=== PATIENT | female | born 1985 | race Caucasian/White ===

== ENCOUNTER 2020-02-09 22:09 | Emergency (ER) | payer MEDICAID ==
[~2020-02-09] VITALS: Ht 172.7 cm; Wt 58.1 kg
[~2020-02-09 22:09] MED LIST: CEPH-37 PO; CYCL5TAB PO; DIAZ2TAB PO; FURO40TA4 PO; LOPE1TAB9 PO; MORP30TA PO; PERCOT PO; PROM25TA5 PO; ZOLP10TA6 PO; [UNRECOGNIZED DRUG - CODE] PO
[2020-02-10] MEDS ORDERED: IBUPROFEN 600 MG TAB PO ONE
[2020-02-10 00:20] VITALS: BP 128/67
[2020-02-10] MEDS ORDERED: KETOROLAC TROMETH 30 MG/ML 1ML VIAL IV ONE (00:30)
== END 2020-02-10 00:46 | disposition home or self-care (01) ==
LOC: EDBD 22:09 → ER 22:11
DX: M53.3 Sacrococcygeal disorders, not elsewhere classified (principal); F17.210 Nicotine dependence, cigarettes, uncomplicated; Z86.2 Personal history of diseases of the blood and blood-forming organs and certain disorders involving the immune mechanism; Z79.899 Other long term (current) drug therapy; Z91.013 Allergy to seafood; Z88.1 Allergy status to other antibiotic agents; Z88.0 Allergy status to penicillin; Z91.018 Allergy to other foods; W00.0XXA Fall on same level due to ice and snow, initial encounter; Y93.89 Activity, other specified; Y92.89 Other specified places as the place of occurrence of the external cause; Y99.8 Other external cause status
CPT/HCPCS: 72131; 72192; 96374; 99285; J1885

== ENCOUNTER 2020-02-16 14:45 | Emergency (ER) | payer MEDICAID ==
[~2020-02-16] VITALS: Ht 162.6 cm; Wt 61.2 kg
[~2020-02-16 14:45] MED LIST changes: +AMIT10TA7 PO; -[UNRECOGNIZED DRUG - CODE] PO
[2020-02-16 19:45] LABS: Urine Bacteria FEW /hpf (None Seen); Urine Blood Negative /uL (Negative); Urine Specific Gravity 1.025 (1.001-1.035); Urine WBC 51 /hpf (0 - 5)
[2020-02-16 19:49] LABS: Basophils # (auto) 0.2 10 ^3/uL (0-0.2); Eosinophils # (auto) 0.3 10 ^3/uL (0-0.8); Eosinophils % (auto) 2.4 % (0.0-7.0); Hematocrit 43.7 % (36.0-46.0); Hemoglobin 14.6 g/dL (12.2-16.2); Lymphocytes # (auto) 2.3 10 ^3/uL (0.4-5.4); Lymphocytes % (auto) 21.9 % (10.0-50.0); Mean Corpuscular Hemoglobin 31.2 pg (28.0-32.0); Mean Corpuscular Hgb Conc. 33.4 g/dL (32.0-36.0); Mean Corpuscular Volume 93.3 fL (80.0-100.0); Monocytes # (auto) 1.1 10 ^3/uL (0-1.3); Monocytes % (auto) 10.6 % (0.0-12.0); Neutrophils # (auto) 6.7 10 ^3/uL (1.6-8.6); Neutrophils % (auto) 63.1 % (37.0-80.0); Nucleated Red Blood Cells % 0.1 %; Red Blood Cells 4.68 10^6/uL (4.0-5.20); White Blood Cell 10.6 10^3/uL (4.4-10.8)
[2020-02-16 19:57] LABS: Albumin 3.9 g/dL (3.4-5.0); Calcium 8.9 mg/dL (8.5-10.1); Potassium 3.9 mmol/L (3.5-5.1)
[2020-02-16 20:00] LABS: BUN/Creatinine Ratio 21.1; Bilirubin, Total 0.3 mg/dL (0.2-1.0); Total Protein 7.7 g/dL (6.4-8.2)
[2020-02-16] MEDS ORDERED: MAGNESIUM CITRATE SOLUTION 300 ML BTL PO ONE (21:45)
[2020-02-16] MEDS ORDERED: methylPREDNISolone SOD SUCC 125 MG/2 ML VL IM ONE (21:45)
[2020-02-16] MEDS ORDERED: cefTRIAXone SOD 1,000 MG VL IM ONE (21:45)
[2020-02-16] MEDS ORDERED: DOCUSATE SOD 100 MG CAP PO ONE (21:45)
[2020-02-16] MEDS ORDERED: KETOROLAC TROMETH 60MG/2ML VIAL IM ONE (21:45)
[2020-02-16] MEDS ORDERED: SENNA 8.6 MG TAB PO ONE (21:45)
[2020-02-16] MEDS ORDERED: AZITHROMYCIN 250 MG TAB PO ONE (21:45)
[2020-02-16] MEDS ORDERED: LACTULOSE 20Gm/30ML SOLN PO ONE (21:45)
[2020-02-16 21:46] VITALS: BP 116/86
[2020-02-17] MEDS ORDERED: SIMETHICONE 80 MG CHEWABLE TABLET PO ONE (00:45)
[2020-02-17] MEDS ORDERED: MILK OF MAGNESIA 30ML SUSP PO ONE (00:45)
[2020-02-18 08:06] LABS: RPR Non Reactive (Non Reactive)
== END 2020-02-17 01:59 | disposition home or self-care (01) ==
LOC: ER 14:45
DX: N39.0 Urinary tract infection, site not specified (principal); K59.00 Constipation, unspecified; F17.210 Nicotine dependence, cigarettes, uncomplicated; Z79.899 Other long term (current) drug therapy; Z88.0 Allergy status to penicillin; Z88.1 Allergy status to other antibiotic agents; Z91.018 Allergy to other foods; Z20.2 Contact with and (suspected) exposure to infections with a predominantly sexual mode of transmission
CPT/HCPCS: 36415; 74176; 76830; 76856; 80053; 81001; 84702; 85025; 86592; 86695; 86696; 86703; 87070; 87491; 87591; 96372; 99285; J0696; J1885; J2930

== ENCOUNTER 2020-03-14 11:26 | Emergency (ER) | payer MEDICAID ==
[~2020-03-14] VITALS: Ht 162.6 cm; Wt 63.5 kg
[~2020-03-14 11:26] MED LIST changes: -AMIT10TA7 PO; +[UNRECOGNIZED DRUG - CODE] PO
[2020-03-14 11:36] VITALS: BP 111/64
[2020-03-14 15:21] LABS: Urine Bacteria FEW /hpf (None Seen); Urine Blood Negative /uL (Negative); Urine Specific Gravity 1.015 (1.001-1.035); Urine WBC 1 /hpf (0 - 5)
[2020-03-14 15:24] LABS: Basophils # (auto) 0 10 ^3/uL (0-0.2); Basophils % (auto) 0.5 % (0.0-2.0); Eosinophils # (auto) 0.4 10 ^3/uL (0-0.8); Eosinophils % (auto) 4.5 % (0.0-7.0); Hemoglobin 14.1 g/dL (12.2-16.2); Lymphocytes # (auto) 3.8 10 ^3/uL (0.4-5.4); Lymphocytes % (auto) 41.4 % (10.0-50.0); Mean Corpuscular Hemoglobin 31.9 pg (28.0-32.0); Mean Corpuscular Hgb Conc. 34.5 g/dL (32.0-36.0); Mean Corpuscular Volume 92.3 fL (80.0-100.0); Monocytes # (auto) 0.9 10 ^3/uL (0-1.3); Monocytes % (auto) 10.3 % (0.0-12.0); Neutrophils # (auto) 3.9 10 ^3/uL (1.6-8.6); Neutrophils % (auto) 43.3 % (37.0-80.0); Nucleated Red Blood Cells % 0.1 %; Platelet Count (auto) 306 10^3/uL (140-450); Red Blood Cells 4.44 10^6/uL (4.0-5.20); Red Cell Distribution Width 13.5 % (11.8-14.3); White Blood Cell 9.1 10^3/uL (4.4-10.8)
[2020-03-14 15:40] LABS: Albumin 3.5 g/dL (3.4-5.0); BUN/Creatinine Ratio 22.4; Calcium 8.6 mg/dL (8.5-10.1); Potassium 4.1 mmol/L (3.5-5.1)
[2020-03-14 15:43] LABS: Bilirubin, Total 0.3 mg/dL (0.2-1.0); Total Protein 6.8 g/dL (6.4-8.2)
== END 2020-03-14 17:03 | disposition home or self-care (01) ==
LOC: ER 11:26
DX: R10.84 Generalized abdominal pain (principal); F17.210 Nicotine dependence, cigarettes, uncomplicated; Z20.822 Contact with and (suspected) exposure to COVID-19; Z88.0 Allergy status to penicillin; Z91.013 Allergy to seafood; Z88.1 Allergy status to other antibiotic agents; Z91.018 Allergy to other foods
CPT/HCPCS: 36415; 74176; 80053; 81001; 85025; 87426

== ENCOUNTER 2020-06-08 21:20 | Emergency (ER) | payer MEDICAID ==
[~2020-06-08] VITALS: Ht 162.6 cm; Wt 68.0 kg
[~2020-06-08 21:20] MED LIST changes: +AMIT10TA7 PO; -[UNRECOGNIZED DRUG - CODE] PO
[2020-06-08 23:03] LABS: Basophils # (auto) 0 10 ^3/uL (0-0.2); Basophils % (auto) 0.4 % (0.0-2.0); Eosinophils # (auto) 0.2 10 ^3/uL (0-0.8); Eosinophils % (auto) 2.1 % (0.0-7.0); Hematocrit 43.3 % (36.0-46.0); Hemoglobin 14.5 g/dL (12.2-16.2); Lymphocytes # (auto) 3.4 10 ^3/uL (0.4-5.4); Lymphocytes % (auto) 36.3 % (10.0-50.0); Mean Corpuscular Hemoglobin 30.6 pg (28.0-32.0); Mean Corpuscular Hgb Conc. 33.4 g/dL (32.0-36.0); Mean Corpuscular Volume 91.8 fL (80.0-100.0); Monocytes # (auto) 0.8 10 ^3/uL (0-1.3); Neutrophils % (auto) 53.2 % (37.0-80.0); Platelet Count (auto) 303 10^3/uL (140-450); Red Blood Cells 4.72 10^6/uL (4.0-5.20); Red Cell Distribution Width 14.2 % (11.8-14.3); White Blood Cell 9.4 10^3/uL (4.4-10.8)
[2020-06-08 23:30] LABS: Albumin 3.7 g/dL (3.4-5.0); Calcium 8.5 mg/dL (8.5-10.1); Potassium 3.5 mmol/L (3.5-5.1)
[2020-06-08 23:32] LABS: BUN/Creatinine Ratio 19.7
[2020-06-08 23:35] LABS: Bilirubin, Total 0.4 mg/dL (0.2-1.0); Total Protein 7.2 g/dL (6.4-8.2)
[2020-06-09 00:15] LABS: Urine Bacteria FEW /hpf (None Seen); Urine Blood Negative /uL (Negative); Urine Mucus FEW (None Seen); Urine Specific Gravity 1.028 (1.001-1.035); Urine WBC 8 /hpf (0 - 5)
[2020-06-09] MEDS ORDERED: MORPHINE SULF INJ 2 MG/ML SYRINGE 1ML IV ONE (01:15)
[2020-06-09] MEDS ORDERED: cefTRIAXone 1GM/50ML D5W 50 ML IV ONE (01:15)
[2020-06-09] MEDS ORDERED: metroNIDAZOLE 500MG/100ML 100 ML IV ONE (01:15)
[2020-06-09] MEDS ORDERED: SODIUM CHLORIDE 0.9% 1,000 ML IV ONE (01:15)
[2020-06-09] MEDS ORDERED: ONDANSETRON HCL 4 MG/2 ML VIAL IV ONE (01:45)
[2020-06-09 02:16] LABS: Alcohol, Urine < 3.0 mg/dL (0-10); Amphetamine Screen, Urine NEGATIVE (NEGATIVE); Barbiturate Scree,Urine NEGATIVE (NEGATIVE); Benzodiazephine Screen, Urine POSITIVE (NEGATIVE); Cannabinoid Screen, Urine POSITIVE (NEGATIVE); Cocaine Screen, Urine NEGATIVE (NEGATIVE); Opiate Scree,Urine NEGATIVE (NEGATIVE); Phencyclidine Screen, Urine NEGATIVE (NEGATIVE)
[2020-06-09 06:53] VITALS: BP 97/46
== END 2020-06-09 06:57 | disposition home or self-care (01) ==
LOC: ER 21:23
DX: N39.0 Urinary tract infection, site not specified (principal); N89.8 Other specified noninflammatory disorders of vagina
CPT/HCPCS: 36415; 74176; 76830; 76856; 80053; 80307; 81001; 84702; 85025; 87070; 87491; 87591; 96365; 96368; 96375; 99285; J0696; J2270; J2405; J3490; J7030

== ENCOUNTER 2020-06-28 22:58 | Emergency (ER) | payer MEDICAID ==
[~2020-06-28] VITALS: Ht 162.6 cm; Wt 69.9 kg
[2020-06-28 23:48] LABS: Basophils # (auto) 0.1 10 ^3/uL (0-0.2); Basophils % (auto) 0.5 % (0.0-2.0); Eosinophils # (auto) 0.1 10 ^3/uL (0-0.8); Eosinophils % (auto) 1.3 % (0.0-7.0); Hematocrit 42.7 % (36.0-46.0); Hemoglobin 14.6 g/dL (12.2-16.2); Lymphocytes # (auto) 3.3 10 ^3/uL (0.4-5.4); Lymphocytes % (auto) 30.8 % (10.0-50.0); Mean Corpuscular Hemoglobin 30.9 pg (28.0-32.0); Mean Corpuscular Hgb Conc. 34.2 g/dL (32.0-36.0); Mean Corpuscular Volume 90.5 fL (80.0-100.0); Monocytes # (auto) 0.9 10 ^3/uL (0-1.3); Monocytes % (auto) 8.4 % (0.0-12.0); Neutrophils # (auto) 6.3 10 ^3/uL (1.6-8.6); Nucleated Red Blood Cells % 0.1 %; Platelet Count (auto) 284 10^3/uL (140-450); Red Blood Cells 4.72 10^6/uL (4.0-5.20); White Blood Cell 10.7 10^3/uL (4.4-10.8)
[2020-06-29 00:05] LABS: Albumin 4.1 g/dL (3.4-5.0); BUN/Creatinine Ratio 19.7; Calcium 8.9 mg/dL (8.5-10.1); Potassium 3.5 mmol/L (3.5-5.1)
[2020-06-29 00:19] LABS: Bilirubin, Total 0.4 mg/dL (0.2-1.0); Total Protein 7.8 g/dL (6.4-8.2)
[2020-06-29 01:01] LABS: Urine Bacteria FEW /hpf (None Seen); Urine Blood Negative /uL (Negative); Urine Mucus FEW (None Seen); Urine Specific Gravity 1.036 (1.001-1.035); Urine WBC 16 /hpf (0 - 5)
[2020-06-29] MEDS ORDERED: ONDANSETRON ODT 4 MG TAB PO ONE (02:00)
[2020-06-29] MEDS ORDERED: ACETAMINOPHEN 500 MG TAB PO ONE (04:45)
[2020-06-29] MEDS ORDERED: METOCLOPRAMIDE HCL 5MG/ml INJ 2ml VIAL ONE (04:48)
[2020-06-29] MEDS ORDERED: METOCLOPRAMIDE HCL 5MG/ml INJ 2ml VIAL IV ONE (05:00)
[2020-06-29] MEDS ORDERED: KETOROLAC TROMETH 30 MG/ML 1ML VIAL IV ONE (05:00)
[2020-06-29] MEDS ORDERED: SODIUM CHLORIDE 0.9% 1,000 ML IV ONE ×2 (05:00→07:45)
[2020-06-29] MEDS ORDERED: diphenhdrAMINE HCL 50 MG/1 ML VL IV ONE (05:15)
[2020-06-29] MEDS ORDERED: SODIUM CHLORIDE 0.9% 500 ML IVB ONE (07:45)
[2020-06-29] MEDS ORDERED: FAMOTIDINE 20 MG TAB PO ONE (07:45)
[2020-06-29] MEDS ORDERED: DONNATAL 5ml ORAL Elix (BELLADONNA ALK-PHENOBARB) PO ONE (07:45)
[2020-06-29] MEDS ORDERED: ALUM & MAG HYDROX-SIMETH LIQ(MAALOX) 30 ML PO ONE (07:45)
[2020-06-29 10:25] LABS: Barbiturate Scree,Urine NEGATIVE (NEGATIVE); Benzodiazephine Screen, Urine POSITIVE (NEGATIVE); Cannabinoid Screen, Urine POSITIVE (NEGATIVE); Cocaine Screen, Urine NEGATIVE (NEGATIVE); Opiate Scree,Urine NEGATIVE (NEGATIVE); Phencyclidine Screen, Urine NEGATIVE (NEGATIVE)
[2020-06-29 10:32] LABS: Amphetamine Screen, Urine NEGATIVE (NEGATIVE)
[2020-06-29] MEDS ORDERED: SODIUM CHLORIDE 0.9% 500 ML IV ONE (11:00)
[2020-06-29 12:26] VITALS: BP 99/46
== END 2020-06-29 12:27 | disposition home or self-care (01) ==
LOC: ER 23:06
DX: N39.0 Urinary tract infection, site not specified (principal); K59.03 Drug induced constipation; R11.2 Nausea with vomiting, unspecified; G89.4 Chronic pain syndrome; R10.13 Epigastric pain; F17.210 Nicotine dependence, cigarettes, uncomplicated; F41.9 Anxiety disorder, unspecified; Z87.440 Personal history of urinary (tract) infections; Z86.2 Personal history of diseases of the blood and blood-forming organs and certain disorders involving the immune mechanism; Z79.899 Other long term (current) drug therapy; Z91.013 Allergy to seafood; Z88.5 Allergy status to narcotic agent; Z88.0 Allergy status to penicillin; Z91.018 Allergy to other foods
CPT/HCPCS: 36415; 70450; 74176; 80053; 80307; 81001; 81025; 83735; 85025; 96361; 96374; 96375; 99285; J1200; J1885; J2765; J7030; J7040; Q0162